=== PATIENT | female | born 1965 | race Caucasian/White ===

== ENCOUNTER → 2023-11-18 13:38 | Outpatient (CLI) | payer MEDICARE, SELFPAY ==
--- NOTE | 2023-11-18 13:43 | DI.CT.S_ITS ---
PROCEDURE: CT ABDOMEN ADRENAL PROTOCOL INDICATIONS: ADRENAL ADENOMA LEFT TECHNIQUE: Noncontrast 3 mm thick sections acquired from the diaphragms to the iliac crests. After the administration of intravenous contrast, 3 mm thick venous-phase and 15-minute delayed images acquired from the diaphragms to the iliac crests. For radiation dose reduction, the following was used: automated exposure control, adjustment of mA and/or kV according to patient size. COMPARISON: [facility], CT, CT ABDOMEN WITH/WITHOUT CONTRAST, 06/07/2015, 16:01. [facility], CT, CT HIGH RESOLUTION CHEST, 04/30/2022, 16:33. Outside Film, CT, CT ABDOMEN PELVIS WITH CONTRAST, 12/16/2021, 15:58. FINDINGS: Image quality: Excellent. Lower chest: Tiny hiatal hernia. ABDOMEN: Adrenal Glands: Low-density left adrenal mass measuring 2.6 x 2.2 x 2.3 cm demonstrates precontrast Hounsfield units of -10 and focus of macroscopic fat is seen centrally. This is diagnostic of a benign, lipid rich adenoma. No right adrenal nodules. Liver: No solid mass. Gallbladder: No wall thickening or calcified stones. Biliary ducts: No biliary dilation. Pancreas: Normal size and morphology without visible ductal dilatation or inflammation. Spleen: Size is within normal limits. Kidneys and Ureters: No hydronephrosis. No solid mass. No complex renal cystic lesion which requires follow up. Stomach and Bowel: Stomach and visible bowel loops are within normal limits. Peritoneum: No abnormal intraperitoneal fluid. No free air. Ventral Wall: No hernia. Abdominal Nodes: No retroperitoneal or mesenteric adenopathy by size criteria. Vessels: The abdominal aorta, IVC, and portal vein are of normal caliber. Bones: No aggressive osseous abnormality. Bony central canal stenosis at L3-4 and L4-5. Multilevel disc degeneration. IMPRESSION: Essentially stable, low-density left adrenal mass compared to CT 06/07/15 compatible with a benign adenoma. No further follow-up is required. Dictated by: Yen Rao M.D. on 11/19/2023 at 14:14 Approved by: Yen Rao M.D. on 11/19/2023 at 14:26
== END ==
PROVIDERS: Referring Provider Internal Medicine Cardiovascular Disease; Visit Provider Internal Medicine Cardiovascular Disease
DX: D35.02 Benign neoplasm of left adrenal gland (principal)
CPT/HCPCS: 74170; Q9967